=== PATIENT | female | born 1995 | race Caucasian/White ===

== ENCOUNTER 2016-10-27 21:40 | Emergency (ER) | payer OTHER ==
[~2016-10-27] VITALS: Ht 160 cm; Wt 54.9 kg
[2016-10-27 21:55] VITALS: BP 103/66
[2016-10-27] MEDS ORDERED: BACTRIM DS TAB1 EAC1 ORAL (22:27)
--- NOTE | 2016-10-27 22:27 | Emergency Room Report ---
History of Present Illness General Chief Complaint: Skin Rash/Abscess Source: Patient Present Illness HPI Is a 21-year-old female present with an abscess to the left upper thigh/groin area. It has been there for 3 days now. It was swollen. She use a pocket knife and cut in there was some moderate amount of pus. Because this is a swelling she was concerned and came in. No fever chills but no nausea no vomiting. Never had this problem before. Allergies: Coded Allergies: AMOXICILLIN (Verified Allergy, Unknown, 10/27/16) CLAVULANIC ACID (Verified Allergy, Unknown, 10/27/16) Patient History Past Medical History: see triage record, old chart reviewed Past Surgical History: none Pertinent Family History: none Social History: Denies: smoking Last Menstrual Period: last month Now: No Immunizations: other Reviewed Nursing Documentation: PMH: Agreed, PSxH: Agreed Nursing Documentation-PMH Past Medical History: No Stated History Review of Systems Eye: Denies: blurred vision, eye pain ENT: Denies: ear pain, nose congestion, throat swelling Respiratory: Denies: cough, shortness of breath Cardiovascular: Denies: chest pain, palpitations Gastrointestinal: Denies: abdominal pain, diarrhea, nausea, vomiting Musculoskeletal: Denies: back pain, joint pain Skin: Denies: rash Neurological: Denies: headache, numbness Endocrine: Denies: increased thirst, increased urine Hematologic/Lymphatic: Denies: easy bruising All Other Systems: negative except mentioned in HPI Physical Exam Vital Signs Date Time Temp Pulse Resp B/P Pulse Ox O2 Delivery O2 Flow Rate FiO2 10/27/16 21:48 98.4 88 16 103/66 99 Room Air vitals normal Sp02 EP Interpretation: reviewed, normal General Appearance: well appearing, no apparent distress, alert Head: normocephalic, atraumatic Eyes: bilateral eye EOMI, bilateral eye PERRL ENT: hearing grossly normal, normal pharynx Neck: full range of motion, supple, no meningismus Respiratory: chest non-tender, lungs clear, normal breath sounds Cardiovascular #1: regular rate, rhythm, no murmur Gastrointestinal: normal bowel sounds, non tender, no mass, no organomegaly, no bruit, non-distended Musculoskeletal: back normal, gait/station normal, normal range of motion, other - Left upper thigh/groin area: There is an indurated area of 2 cm with center necrosis. Mild redness. Neurologic: alert, oriented x3 Psychiatric: mood/affect normal Skin: warm/dry Procedures Incision and Drainage Incision and Drainage : Consent: Verbal Site: Left thigh/groin Blade Size: 11 I & D Procedure: betadine prep, sterile drapes applied Wound Location: lower extremity Anesthesia: 1% Lidocaine Volume Anesthetic (ccs): 2 Patient Tolerated: Well Complications: None Progress cleaned with Betadine. Local anesthetic with 1% lidocaine. A made a 1 cm incision. Only scant amount of pus expressed. Loculated area broken up. patient tolerated procedure without a problem. Medical Decision Making Diagnostic Impression: Primary Impression: Abscess ER Course patient with superficial abscess. No deep infection. No necrotizing fasciitis. We'll discharge home. Last Vital Signs Date Time Temp Pulse Resp B/P Pulse Ox O2 Delivery O2 Flow Rate FiO2 10/27/16 21:55 98.4 16 103/66 99 Room Air 10/27/16 21:48 88 Status: improved Disposition: HOME, SELF-CARE Condition: Stable Scripts Trimethoprim/Sulfamethoxazole 160/800* (BACTRIM DS TABLET*) 1 Each Tablet 1 TAB ORAL Q12H, #14 TAB 0 Refills Prov: JOSELYN STAPLETON M.D. 10/27/16 Patient Instructions: Abscess Additional Instructions: Followup with your DrDaniel in 2-3 days. Return if symptom worsen. JOSELYN STAPLETON M.D. Oct 27, 2016 22:27
[2016-10-27] MEDS ORDERED: Bactrim DS (160mg/800mg) tab ORAL ONE (22:30)
[2016-10-27 22:34] VITALS: BP 103/66
== END 2016-10-27 22:34 | disposition home or self-care (01) ==
LOC: EMR 21:50
DX: L02.415 Cutaneous abscess of right lower limb (principal); Z88.0 Allergy status to penicillin; Z88.8 Allergy status to other drugs, medicaments and biological substances
CPT/HCPCS: 10060; 99283